=== PATIENT | male | born 1990 | race Caucasian/White ===

== ENCOUNTER 2017-07-04 20:49 | Emergency (ER) | payer SELFPAY ==
[2017-07-04 20:59] VITALS: BP 143/92
[2017-07-04] MEDS ORDERED: TDAP ADULT 0.5 ML INJ (BOOSTRIX) IM ONE (21:05)
--- NOTE | 2017-07-04 21:08 | EDPHY ---
H & P Stated Complaint: lac to right eyebrow Time Seen by Provider: 07/04/17 21:05 HPI/ROS: HPI: This is a 26-year-old male who presents with Chief Complaint: Right eyebrow laceration Location: Right eyebrow Quality: Laceration Duration: 1 hr prior to arrival Signs and Symptoms: + bleeding, no radiation, no numbness, no weakness, no tingling, no incontinence, no decreased range of motion, no swelling, no pain, no fever Timing: Acute Severity: Mild Context: Patient reports that he was running up wooden stairs that were wet from the recent train when he slipped and fell forward. Reports that he hit the right side of his sabianism and eyebrow area onto the wooden handle. He reports that today he felt moderate, constant pain. Reports that now he only feels discomfort when he touches the area of concern. He reports that it continued to bleed until he applied direct pressure. Unsure of tetanus status. Denies LOC/neck pain/dizziness/nausea/vomiting/amnesia/visual changes. Patient was ambulatory at the scene. Mother drove him to the emergency room for further care. Modifying Factors: Direct pressure Comment: ROS: see HPI Constitutional: No fever, no chills, no weight loss Eyes: No blurred vision Respiratory: No shortness of breath, no cough Cardiovascular: No chest pain Gastrointestinal: No nausea, no vomiting no diarrhea Genitourinary: No dysuria Extremities: No myalgias Neurologic: No weakness, no numbness Skin: No rashes Hematologic: No bruising, no bleeding MEDICAL/SURGICAL/SOCIAL HISTORY: Medical history: Hypothyroidism Surgical history: Denies Social history: Employed CONSTITUTIONAL: Polite and cooperative adult white male, awake and alert, no obvious distress HEENT: 1.5 inch vertical laceration, simple, superficial located superior to his right eyebrow. normocephalic, PERRL, EOMI. Nares patent; no rhinorrhea; no nasal mucosal edema. Tympanic membranes clear. Oropharynx clear, no exudate and moist pink mucosa. Airway patent. No lymphadenopathy. No meningismus. Cardiovascular: Normal S1/S2, regular rate, regular rhythm, without murmur rub or gallop. PULMONARY/CHEST: Symmetrical and nontender. Clear to auscultation bilaterally. Good air movement. No accessory muscle usage. ABDOMEN: Soft, nondistended, nontender, no rebound, no guarding, no peritoneal signs, no masses or organomegaly. No CVAT. EXTREMITIES: 2/2 pulses, strength 5/5, no deformities, no clubbing, no cyanosis or edema. NEUROLOGICAL: no focal neuro deficits. GCS 15. SKIN: Warm and dry, no erythema. no rash. Good capillary refill. Source: Patient Exam Limitations: No limitations - Personal History Current Tetanus Diphtheria and Acellular Pertussis (TDAP): Unsure - Medical/Surgical History Hx Asthma: No Hx Chronic Respiratory Disease: No Hx Diabetes: No Hx Cardiac Disease: No Hx Renal Disease: No Hx Cirrhosis: No Hx Alcoholism: No Hx HIV/AIDS: No Hx Splenectomy or Spleen Trauma: No Other PMH: hypothyroidism - Social History Smoking Status: Never smoked Constitutional: Initial Vital Signs Temperature (C) 37.1 C 07/04/17 20:56 Heart Rate 96 07/04/17 20:56 Respiratory Rate 16 07/04/17 20:56 Blood Pressure 143/92 H 07/04/17 20:56 O2 Sat (%) 96 07/04/17 20:56 O2 Delivery Mode Room Air Allergies/Adverse Reactions: bees Allergy (Uncoded 09/08/14 06:26) tree pollen Allergy (Uncoded 09/08/14 06:26) Home Medications: Medication Instructions Recorded NK [No Known Home Meds] 07/04/17 Medical Decision Making Procedures: Procedure: Laceration repair. Verbal consent was obtained from the patient. The 1.5 inch vertical laceration , simple, superficial located superior to his right eyebrow was anesthetized in the usual fashion using 4 mL of 1% lidocaine with epinephrine. The wound was irrigated, draped and explored to its base with a gloved finger. There were no deep structures involved. No tendon injury was identified. The wound was repaired with #5, 5-0 Prolene in simple interrupted pattern. Good hemostasis was achieved and patient tolerated procedure well. Clean sterile dressing applied with paper tape. The procedure was performed by myself. ED Course/Re-evaluation: Based on [place] CT protocol head CT/cervical CT imaging not indicated. Tetanus booster given Laceration repaired and clean sterile dressing applied. Given verbal and written laceration care instructions. This patient was seen under the supervision of my secondary supervising physician. I evaluated care for this patient independently. Differential Diagnosis: Differential diagnosis includes but is not limited to laceration, nerve injury, concussion, temporal fracture. - Data Points Medications Given: Discontinued Medications Diphtheria/Tetanus/Acell Pertussis (Boostrix) 0.5 ml IM .ONCE ONE Stop: 07/04/17 21:06 Last Admin: 07/04/17 21:12 Dose: 0.5 ml Departure - Departure Disposition: Home, Routine, Self-Care Clinical Impression: Laceration of right eyebrow without complication Qualifiers: Encounter type: initial encounter Qualified Code(s): S01.111A - Laceration without foreign body of right eyelid and periocular area, initial encounter Condition: Good Instructions: Facial Laceration (ED), Care For Your Stitches (ED), Black Eye ( ED) Additional Instructions: Keep the dressing dry and in place for 48 hours. After 48 hours, you may remove the dressing; wash the site daily with mild soap and water; then pat dry. Take Tylenol 650 mg every 4 hours and/or Ibuprofen 600 mg every 8 hours with food as needed for pain. Apply ice for 30 minutes at a time; 2-3 times per day for the next 1-2 days. Wound Care Follow-Up: Removal of sutures in [ 7 ] days. Suture removal is complimentary in uncomplicated cases. Infection or abnormal findings would require reevaluation by the MD. In that case, you may be billed. Referrals: [facility],. [Clinic] - As per Instructions
== END 2017-07-04 21:31 | disposition home or self-care (01) ==
PROC: 0HQ1XZZ Repair Face Skin, External Approach (ICD-10-PCS; principal; 2017-07-04)
DX: S01.111A Laceration without foreign body of right eyelid and periocular area, initial encounter (principal); Z23 Encounter for immunization; W10.8XXA Fall (on) (from) other stairs and steps, initial encounter; Y99.8 Other external cause status; Y93.02 Activity, running